=== PATIENT | female | born 1995 | race Caucasian/White ===

== ENCOUNTER 2016-03-18 12:31 | Emergency (ER) | payer BC ==
[~2016-03-18] VITALS: Ht 167.6 cm; Wt 62.6 kg
[2016-03-18 12:44] VITALS: TEMP 37.2; Ht 167.6 cm; Wt 62.6 kg
[2016-03-18] MEDS ORDERED: SODIUM CHLORIDE 0.9% 1000ML 1,000 ML IV STA (14:38)
[2016-03-18 14:53] LABS: BASO % 0.5 %; BASO ABS # 0.04 K/uL (0-0.2); COMPLETE YES; EOS % 3.1 %; HEMATOCRIT 41.1 % (37-47); IG% 0.4 %; LYMPH % 36.6 %; LYMPH ABS # 2.99 K/uL (1.2-3.4); MEAN CELL VOLUME 90.9 fL (80-100); MEAN CORPUSCULAR HEMOGLOBIN 32.3 pg (25-34); MEAN CORPUSCULAR HGB CONC 35.5 g/dl (32-36); MEAN PLATELET VOLUME 9.5 fL (7.4-10.4); MONO % 12.4 %; PLATELET COUNT 306 K/uL (130-400); RED BLOOD COUNT 4.52 M/uL (4.2-5.4); WHITE BLOOD COUNT 8.16 K/uL (4.8-10.8)
[2016-03-18] MEDS ORDERED: VANC1CAP3 PO (15:11)
[2016-03-18] MEDS ORDERED: BCPILLS PO (15:11)
[2016-03-18 15:15] LABS: BUN/CREATININE RATIO 16.3 (10-20); CALCIUM 9.1 mg/dl (8.5-10.1); CREATININE 0.88 mg/dl (0.60-1.20); POTASSIUM 3.9 mmol/L (3.5-5.1)
[2016-03-18 17:38] VITALS: BP 108/67; PULSE 66; O2SAT 97
--- NOTE | 2016-03-18 18:11 | EMERGENCY ROOM VISIT NOTE ---
History Report prepared by Elida: Sejal Melchor Under the Supervision of: Dr. Jelani Delgadillo M.D. First contact with patient: 14:23 Chief Complaint: GI ASSESSMENT Stated Complaint: C.DIFF, NOT RESPONDING TO TREATMENT, FEVER, DIARRH Nursing Triage Summary: Abd pain and intermittent fevers. Pt currently on ABX; hx of C. diff infection History of Present Illness The patient is a 20 year old female who presents to the Emergency Room with complaints of persistent diarrhea that began in January. She currently rates her discomfort as a 6/10 in severity. The patient states that she has a history of IBS and has always had issues with her bowel. She states that in January she started experiencing diarrhea every single hour for about one week. The patient thought that her symptoms were starting to alleviate, but states that her symptoms persisted to February. She states that in February her production checker tested her for c-diff and came back positive. The patient states that she was not on antibiotics prior to the c-diff, but states that she was on Omeprazole prior to the C-diff. She states that when she first developed the diarrhea in January she noticed a small amount of blood and additionally mucous in her diarrhea. The patient states that her diarrhea has been changing from watery to more formed, but denies any normal bowel movements. The patient states that after her positive c-diff finding in February , she was placed on a 10 day regimen of 125 mg of Vancomycin four times a day. She states that her symptoms were better, but not resolved for five days after the antibiotics. The patient states that her symptoms then began worsening. She states that she consulted her production checker and states that she was placed back on Vancomycin. The patient states that she has been on the Vancomycin again for the past four days, but is still having persistent diarrhea. She states that yesterday she noticed the mucous in her stool again so she felt that her Vancomycin is no longer working. The patient states that she is unsure why her doctor did not start her on Flagyl when her symptoms began. Today she notes pain to her lower left abdominal quadrant, but states that she also experiences the same pain with her IBS. The patient states that her abdominal pain has been more concentrated and persistent since her diarrhea began in January but has not worsened since January. She states that she has had a subjective fever and has been nauseous, but she denies any vomiting. The patient denies being retested for C-diff since her symptoms worsened. She states that her last colonoscopy was a year and a half ago. The patient states that it was normal. She states that both IBS and diverticulitis run in her family, noting that her mother and maternal grandmother both have a history of it. Source of History: patient Onset: January Position: other (global) Symptom Intensity: 07/19 Quality: other (diarrhea) Timing: other (persistent) Associated Symptoms: + abdominal pain, + fevers (subjective), + nausea, No vomiting Note: Associated Symptoms: mucous in stool Review of Systems See HPI for pertinent positives & negatives. A total of 10 systems reviewed and were otherwise negative. Past Medical & Surgical Medical Problems: (1) IBS (irritable bowel syndrome) Family History FHx: diverticulitis Irritable bowel syndrome Social History Smoking Status: Never Smoker Marital Status: single Occupation Status: [employer] student Current/Historical Medications Scheduled Control Pills ( Control Pills), 1 TAB PO DAILY Vancomycin Hcl (Vancomycin), 250 MG PO Q4H Allergies Coded Allergies: No Known Allergies (Unverified , 03/18/16) Physical Exam Vital Signs Date Time Temp Pulse Resp B/P Pulse Ox O2 Delivery O2 Flow Rate FiO2 03/18/16 17:38 66 16 108/67 97 03/18/16 16:44 65 98/57 98 Room Air 03/18/16 14:50 74 18 104/63 97 Room Air 03/18/16 12:44 37.2 94 18 111/65 93 Room Air Physical Exam Constitutional: Vital signs reviewed. Eyes: Pupils are equal round reactive to light. Conjunctiva are noninjected. ENT: Pharynx is clear without erythema or exudate. Mucous membranes are moist. Neck supple without meningeal signs. Respiratory: Clear to auscultation bilaterally. Breath sounds are equal bilaterally. Cardiovascular: Regular rate and rhythm. No rubs or gallops. GI: Tender in the left lower quadrant. No guarding. Soft, nondistended. Bowel sounds are present. Musculoskeletal: No peripheral edema. No CVA tenderness. Integumentary: No cyanosis. Neurological: The patient is awake and alert. No focal deficits. Psychiatric: Normal affect. Medical Decision & Procedures Laboratory Results 03/18/16 14:25 Red Blood Count 4.52, Mean Corpuscular Volume 90.9, Mean Corpuscular Hemoglobin 32.3, Mean Corpuscular Hemoglobin Concent 35.5, Mean Platelet Volume 9.5, Neutrophils (%) (Auto) 47.0, Lymphocytes (%) (Auto) 36.6, Monocytes (%) (Auto) 12.4, Eosinophils (%) (Auto) 3.1, Basophils (%) (Auto) 0.5, Neutrophils # (Auto ) 3.84, Lymphocytes # (Auto) 2.99, Monocytes # (Auto) 1.01, Eosinophils # (Auto ) 0.25, Basophils # (Auto) 0.04 03/18/16 14:25 Test 03/18/16 14:25 White Blood Count 8.16 K/uL (4.8-10.8) Red Blood Count 4.52 M/uL (4.2-5.4) Hemoglobin 14.6 g/dL (12.0-16.0) Hematocrit 41.1 % (37-47) Mean Corpuscular Volume 90.9 fL (80-100) Mean Corpuscular Hemoglobin 32.3 pg (25-34) Mean Corpuscular Hemoglobin Concent 35.5 g/dl (32-36) Platelet Count 306 K/uL (130-400) Mean Platelet Volume 9.5 fL (7.4-10.4) Neutrophils (%) (Auto) 47.0 % Lymphocytes (%) (Auto) 36.6 % Monocytes (%) (Auto) 12.4 % Eosinophils (%) (Auto) 3.1 % Basophils (%) (Auto) 0.5 % Neutrophils # (Auto) 3.84 K/uL (1.4-6.5) Lymphocytes # (Auto) 2.99 K/uL (1.2-3.4) Monocytes # (Auto) 1.01 K/uL (0.11-0.59) Eosinophils # (Auto) 0.25 K/uL (0-0.5) Basophils # (Auto) 0.04 K/uL (0-0.2) RDW Standard Deviation 39.8 fL (36.4-46.3) RDW Coefficient of Variation 12.0 % (11.5-14.5) Immature Granulocyte % (Auto) 0.4 % Immature Granulocyte # (Auto) 0.03 K/uL (0.00-0.02) Anion Gap 9.0 mmol/L (3-11) Est Creatinine Clear Calc Drug Dose 95.4 ml/min Estimated GFR () 109.6 Estimated GFR (Non- 94.6 BUN/Creatinine Ratio 16.3 (10-20) Calcium Level 9.1 mg/dl (8.5-10.1) Total Bilirubin 1.1 mg/dl (0.2-1) Direct Bilirubin 0.2 mg/dl (0-0.2) Aspartate Amino Transf (AST/SGOT) 17 U/L (15-37) Alanine Aminotransferase (ALT/SGPT) 20 U/L (12-78) Alkaline Phosphatase 55 U/L (45-117) Total Protein 8.3 gm/dl (6.4-8.2) Albumin 4.3 gm/dl (3.4-5.0) Lipase 194 U/L (73-393) Laboratory results as reviewed by me. Medications Administered Medications (Trade) Dose Ordered Sig/Nelli Route Start Time Stop Time Status Last Admin Dose Admin Sodium Chloride (Nss 1000ml) 1,000 ml @ 999 mls/hr Q1H1M STAT IV 03/18/16 14:38 03/18/16 15:38 DC 03/18/16 14:50 999 MLS/HR ED Course 1426: The patient was evaluated in room B6. A complete history and physical exam was performed. 1537: Ordered Sodium Chloride 1000 ml @ 999 mls/hr IV. 1558: I reevaluated the patient and she just gave a stool sample. I discussed her test results so far. 1632: I reevaluated the patient and updated her that it will be 40 minutes until the culture will be back. 1706: I reevaluated the patient and I discussed her test results with her. She states that she is going to follow up with her production checker. She was instructed to continue Vancomycin. She verbalized complete understanding and agreement. She is ready to go home. Medical Decision This is a 20-year-old female who presents with abdominal pain and diarrhea. Differential diagnosis includes C. difficile colitis, diverticulitis, irritable bowel syndrome, inflammatory bowel disease, dehydration. I did perform a limited focused review of portions of the patient's old chart on the electronic medical record. The patient has had no prior visits. I did evaluate the patient as noted above. The patient is presenting with persistent diarrhea. She was treated with one course of vancomycin and her diarrhea returned and so she is on a another course of vancomycin at a higher dosage. She has been compliant with this medication. She also notes that she has had abdominal pain since January but states it is similar to her previous irritable bowel syndrome pain and she has had it nearly every day since January. She is tender to left lower quadrant but states that this is not unusual for her. IV access was established. Stool testing is negative for C. difficile. Stool culture is pending. I did order and review the patient's blood work as noted in the electronic medical record. Her white blood cell count is not elevated. I did treat patient with normal saline IV. I did discuss the test results with the patient. We did discuss the possibility of CT scanning but felt that it was not indicated at this time as the patient does not have any fever or elevation of her white blood cell count. She states that the pain and tenderness she has is identical to her previous symptoms. She was advised to follow closely with her production checker or [facility]. She does understand that one negative C. difficile test is not 100% sensitive and was told to continue her vancomycin. She was told to return for worsening symptoms or should develop any new symptoms such as fever or vomiting. She was discharged in good condition. Impression Primary Impression: Chronic diarrhea Additional Impressions: Abdominal pain, left lower quadrant History of Clostridium difficile Scribe Attestation The scribe's documentation has been prepared under my direct and personally reviewed by me in its entirety. I confirm that the note above accurately reflects all work, treatment, procedures, and medical decision making performed by me. Departure Information Dispostion Home / Self-Care Forms HOME CARE DOCUMENTATION FORM, IMPORTANT VISIT INFORMATION, School Instructions Patient Instructions ED Abd Pain Unkn Cause Fem, My [facility] Additional Instructions You have been examined and treated today on an emergency basis only. This is not a substitute for, or an effort to provide, complete comprehensive medical care. It is impossible to recognize and treat all injuries or illnesses in a single emergency department visit. It is therefore important that you follow up closely with your production checker. Call as soon as possible for an appointment. Return for worsening symptoms or if you develop fever, vomiting, significant rectal bleeding or any other concerning symptoms. Continue your vancomycin as prescribed. Problem Qualifiers
== END 2016-03-18 17:39 | disposition home or self-care (01) ==
LOC: C.EDB 12:34
DX: R19.7 Diarrhea, unspecified (principal); R10.32 Left lower quadrant pain; Z86.19 Personal history of other infectious and parasitic diseases; K58.9 Irritable bowel syndrome, unspecified